=== PATIENT | female | born 1935 | race Caucasian/White ===

== ENCOUNTER 2018-03-16 12:07 | Emergency (ER) | END 2018-03-16 15:34 | disposition home or self-care (01) ==

== ENCOUNTER 2018-09-16 16:27 | Emergency (ER) | payer MEDICARE, BC ==
[~2018-09-16] VITALS: Ht 167.6 cm; Wt 105.0 kg
[~2018-09-16 16:27] MED LIST: ALBU18HF INHALATION; CLON-379 PO; DILT120C79 PO; ESCI20TA PO; FURO20TA3 PO; LORA0.5T PO; NAPR-688 PO; RANI150T35 PO; TRAZ150T65 PO
[2018-09-16 16:32] VITALS: Ht 167.6 cm; Wt 105.0 kg
[2018-09-16] MEDS ORDERED: ESCI20TA PO (17:51)
[2018-09-16] MEDS ORDERED: CLON-379 PO (17:52)
[2018-09-16] MEDS ORDERED: TOLT2TAB13 PO (17:53)
[2018-09-16] MEDS ORDERED: RANI150T5 PO (17:53)
[2018-09-16] MEDS ORDERED: MULT-902 PO (17:53)
[2018-09-16] MEDS ORDERED: GABA300C16 PO (17:55)
[2018-09-16] MEDS ORDERED: IBUP-1542 PO (17:55)
[2018-09-16] MEDS ORDERED: DICL100G37 TOP (17:55)
[2018-09-16] MEDS ORDERED: TRAZ150T65 PO (17:56)
[2018-09-16] MEDS ORDERED: PRED10TA PO (17:58)
[2018-09-16] MEDS ORDERED: DOXY100T20 PO (20:47)
--- NOTE | 2018-09-16 20:55 | ERD ---
ER Documentation Chief Complaint Chief Complaint Complains of lower left leg swelling x 1 week HPI 83-year-old female, who presents for evaluation of bilateral lower extremity swelling, with more redness to her left foot. She denies fever, she denies nausea vomiting, she has had no cough, chest pain, shortness of breath, no history of immobility. ROS All systems reviewed and are negative except as per history of present illness. Medications Home Meds Active Scripts Doxycycline Hyclate* (Doxycycline Hyclate*) 100 Mg Tablet.dr, 100 MG PO BID for 10 Days, TAB Prov:THOR JAMES MD 09/16/18 Reported Medications Prednisone* (Prednisone*) 10 Mg Tab, 15 MG PO DAILY, TAB 09/16/18 Trazodone Hcl* (Trazodone Hcl*) 150 Mg Tablet, 150 MG PO QHS, #30 TAB 09/16/18 Gabapentin* (Gabapentin*) 300 Mg Capsule, 300 MG PO TID, #90 CAP 09/16/18 Diclofenac Sodium* (Voltaren* Gel) 1% -100 Gm Gel, 4 GM TOP QID PRN for PAIN, #1 TUB 09/16/18 Ibuprofen* (Motrin*) 600 Mg Tab, 600 MG PO BID PRN for PAIN, TAB 09/16/18 Multivitamin/Iron/Folic Acid (Centrum Adults Tablet) 1 Each Tablet, 1 EACH PO DAILY, TAB 09/16/18 Tolterodine Tartrate* (Detrol*) 2 Mg Tablet, 2 MG PO BID, #60 TAB 09/16/18 Ranitidine Hcl* (Ranitidine Hcl*) 150 Mg Tablet, 150 MG PO HS, #30 TAB 09/16/18 Clonidine Hcl* (Clonidine Hcl*) 0.1 Mg Tab, 0.1 MG PO QHS PRN for ELEVATED BLOOD PRESSURE, TAB 09/16/18 Escitalopram Oxalate* (Lexapro*) 20 Mg Tablet, 20 MG PO DAILY, #30 TAB 09/16/18 Discontinued Reported Medications Diltiazem Hcl* (Diltiazem XT) 120 Mg Capsule.sa, 120 MG PO DAILY, #30 CAP 03/16/18 Lorazepam* (Lorazepam*) 0.5 Mg Tablet, 0.5 MG PO BID PRN for ANXIETY, TAB 03/16/18 Furosemide* (Furosemide*) 20 Mg Tablet, 20 MG PO DAILY, #60 TAB 08/16/16 Escitalopram Oxalate* (Lexapro*) 20 Mg Tablet, 20 MG PO DAILY, #30 TAB 08/16/16 Clonidine Hcl* (Clonidine Hcl*) 0.1 Mg Tab, 0.1 MG PO DAILY PRN for ELEVATED BLOOD PRESSURE, TAB 08/16/16 Trazodone Hcl* (Trazodone Hcl*) 150 Mg Tablet, 150 MG PO QHS, #30 TAB 08/16/16 Ranitidine Hcl* (Zantac*) 150 Mg Tablet, 150 MG PO BID, #60 TAB 08/16/16 Discontinued Scripts Naproxen* (Naproxen*) 500 Mg Tablet, 500 MG PO BID PRN for PAIN, #14 TAB Prov:NICOLE BARBER DO 08/16/16 Albuterol Sulfate* (Ventolin HFA*) 18 Gm Hfa.aer.ad, 2 PUFF INHALATION Q4H, #1 INHALER Prov:NICOLE BARBER DO 08/16/16 Allergies Allergies: Coded Allergies: rofecoxib (Unverified Allergy, Severe, RASH/SOB, 09/16/18) sertraline (Unverified Allergy, Severe, RASH/SOB, 09/16/18) theophylline (Verified Allergy, Severe, RASH/SOB, 09/16/18) Calcium Channel Blocking Agents-Dih (Verified Allergy, Unknown, 09/16/18) cefaclor (Verified Allergy, Unknown, 09/16/18) cephalexin (Verified Allergy, Unknown, 09/16/18) clarithromycin (Verified Allergy, Unknown, 09/16/18) diltiazem (Verified Allergy, Unknown, 09/16/18) lisinopril (Verified Allergy, Unknown, 09/16/18) triamcinolone (Verified Allergy, Unknown, 09/16/18) PATIENT HAS BEEN TAKING PREDNISONE AT HOME FOR WEEKS FOR TEMPORAL ARTERITIS PER DR ALEX'S ORDERS. PMhx/Soc History of Surgery: Yes (CHOLECYSTECTOMY, HYSTERECTOMY, HIP) Anesthesia Reaction: No Hx Neurological Disorder: No Hx Respiratory Disorders: Yes (ASTHMA ) Hx Cardiac Disorders: Yes (HTN) Hx Psychiatric Problems: Yes (DEPRESSION ) Hx Miscellaneous Medical Probl: Yes Hx Alcohol Use: No Hx Substance Use: No Hx Tobacco Use: No Smoking Status: Never smoker Physical Exam Vitals Vital Signs Date Temp Pulse Resp B/P (MAP) Pulse Ox O2 O2 Flow FiO2 Time Delivery Rate 09/16/18 98.5 79 22 145/90 95 Room Air 17:56 (108) 09/16/18 98.0 86 20 188/87 94 16:32 (120) Physical Exam Const: No acute distress Head: Atraumatic Eyes: Normal Conjunctiva ENT: Normal External Ears, Nose and Mouth. Neck: Full range of motion. No meningismus. Resp: Clear to auscultation bilaterally Cardio: Regular rate and rhythm, no murmurs Abd: Soft, non tender, non distended. Normal bowel sounds Skin: No petechiae or rashes Back: No midline or flank tenderness Ext: There is erythema over the dorsum of the left foot, into the calf, there is no induration, there is no crepitus, there is no fluctuance, there is bilateral 2+ pitting edema. Pulses are intact distally, sensation intact light touch Neur: Awake and alert Psych: Normal Mood and Affect Result Diagram: 09/16/18 1745 09/16/18 1745 Results 24 hrs Laboratory Tests Test 09/16/18 17:45 09/16/18 19:55 White Blood Count 10.9 10^3/ul Red Blood Count 4.42 10^6/ul Hemoglobin 12.7 g/dl Hematocrit 39.9 % Mean Corpuscular Volume 90.3 fl Mean Corpuscular Hemoglobin 28.7 pg Mean Corpuscular Hemoglobin Concent 31.8 g/dl Red Cell Distribution Width 15.6 % Platelet Count 283 10^3/UL Mean Platelet Volume 10.2 fl Immature Granulocytes % 1.400 % Neutrophils % 78.4 % Lymphocytes % 12.2 % Monocytes % 7.4 % Eosinophils % 0.1 % Basophils % 0.5 % Nucleated Red Blood Cells % 0.0 /100WBC Immature Granulocytes # 0.150 10^3/ul Neutrophils # 8.5 10^3/ul Lymphocytes # 1.3 10^3/ul Monocytes # 0.8 10^3/ul Eosinophils # 0.0 10^3/ul Basophils # 0.1 10^3/ul Nucleated Red Blood Cells # 0.0 10^3/ul Sodium Level 141 mmol/L Potassium Level 4.3 mmol/L Chloride Level 109 mmol/L Carbon Dioxide Level 26 mmol/L Anion Gap 6 Blood Urea Nitrogen 12 mg/dl Creatinine 0.70 mg/dl Est Glomerular Filtrat Rate mL/min mL/min Glucose Level 99 mg/dl Calcium Level 9.3 mg/dl Total Bilirubin 0.7 mg/dl Direct Bilirubin 0.00 mg/dl Indirect Bilirubin 0.7 mg/dl Aspartate Amino Transf (AST/SGOT) 30 IU/L Alanine Aminotransferase (ALT/SGPT) 27 IU/L Alkaline Phosphatase 89 IU/L Troponin I < 0.012 ng/ml B-Type Natriuretic Peptide 104 PG/ML Total Protein 7.2 g/dl Albumin 4.1 g/dl Globulin 3.10 g/dl Albumin/Globulin Ratio 1.32 Bedside Urine pH (LAB) 6.0 Bedside Urine Protein (LAB) Negative Bedside Urine Glucose (UA) Negative Bedside Urine Ketones (LAB) Negative Bedside Urine Blood Negative Bedside Urine Nitrite (LAB) Negative Bedside Urine Leukocyte Esterase (L Negative Procedures/MDM 83-year-old female presents for evaluation of bilateral lower extremity swelling. She has no cardiac symptoms, concerning for congestive heart failure, her lab workup was overall unremarkable, her ultrasound showed no evidence of DVT. As I cannot completely rule out cellulitis, I will start empirically on doxycycline. Patient was agreeable to this plan of care, at discharge she was in no acute distress. EKG: Rate/Rhythm: Normal Sinus Rhythm QRS, ST, T-waves: No changes consistent w/ acute ischemia Impression: No evidence of ischemia or arrhythmia Departure Diagnosis: Primary Impression: Cellulitis Site of cellulitis: unspecified site Qualified Codes: L03.90 - Cellulitis, unspecified Additional Impression: Swelling Condition: Stable Patient Instructions: Cellulitis Additional Instructions: Call your primary care doctor TOMORROW for an appointment during the next 2-3 days.See the doctor sooner or return here if your condition worsens before your appointment time. THOR JAMES MD Sep 16, 2018 20:55
[2018-09-16 21:15] VITALS: BP 158/100; PULSE 89; RESP 14
== END 2018-09-16 21:15 | disposition home or self-care (01) ==
LOC: E/R 16:27
DX: L03.116 Cellulitis of left lower limb (principal); J45.909 Unspecified asthma, uncomplicated; I10 Essential (primary) hypertension
CPT/HCPCS: 71045; 80053; 81003; 83880; 84484; 85025; 93971

== ENCOUNTER 2018-12-31 12:48 | Emergency (ER) | payer MEDICARE, BC ==
[~2018-12-31] VITALS: Ht 152.4 cm; Wt 63.6 kg
[~2018-12-31 12:48] MED LIST changes: -ALBU18HF INHALATION; +DICL100G37 TOP; -DILT120C79 PO; +DOXY100T20 PO; -FURO20TA3 PO; +GABA300C16 PO; +IBUP-1542 PO; -LORA0.5T PO; +MULT-902 PO; -NAPR-688 PO; +PRED10TA PO; -RANI150T35 PO; +RANI150T5 PO; +TOLT2TAB13 PO
--- NOTE | 2018-12-31 12:51 | ERD ---
ER Documentation Chief Complaint Chief Complaint ap HPI The patient is a 83-year-old female, presenting to the ER because of intermitt ent abdominal pain for 3 days, diarrhea today, denies nausea, vomiting, hematemesis/hematochezia, dysuria. She complains of left lower extremity redness for 1 week, has similar symptoms previously. Past medical history: Depression, asthma, bipolar, hard of hearing Past surgical history: Cholecystectomy, cholecystectomy ROS All systems reviewed and are negative except as per history of present illness. Medications Home Meds Active Scripts Clindamycin Hcl* (Clindamycin Hcl*) 300 Mg Capsule, 300 MG PO QID for 7 Days, CAP Prov:RD BERMAN MD 12/31/18 Reported Medications Fluocinonide* (Fluocinonide* Oint) 0.05%-60 Gm Oint..gm., 1 TOP DAILY APPLY TO AFFECTED AREA 12/31/18 Furosemide* (Lasix*) 20 Mg Tablet, 20 MG PO DAILY, TAB 12/31/18 Trazodone Hcl* (Desyrel*) 50 Mg Tab, 1 TAB ORAL QHS 12/31/18 Prednisone* (Prednisone*) 10 Mg Tab, 15 MG PO DAILY, TAB 09/16/18 Gabapentin* (Gabapentin*) 300 Mg Capsule, 300 MG PO TID, #90 CAP 09/16/18 Multivitamin/Iron/Folic Acid (Centrum Adults Tablet) 1 Each Tablet, 1 EACH PO DAILY, TAB 09/16/18 Clonidine Hcl* (Clonidine Hcl*) 0.1 Mg Tab, 0.1 MG PO QHS PRN for ELEVATED BLOOD PRESSURE, TAB 09/16/18 Discontinued Reported Medications Trazodone Hcl* (Trazodone Hcl*) 150 Mg Tablet, 150 MG PO QHS, #30 TAB 09/16/18 Diclofenac Sodium* (Voltaren* Gel) 1% -100 Gm Gel, 4 GM TOP QID PRN for PAIN, #1 TUB 09/16/18 Ibuprofen* (Motrin*) 600 Mg Tab, 600 MG PO BID PRN for PAIN, TAB 09/16/18 Tolterodine Tartrate* (Detrol*) 2 Mg Tablet, 2 MG PO BID, #60 TAB 09/16/18 Ranitidine Hcl* (Ranitidine Hcl*) 150 Mg Tablet, 150 MG PO HS, #30 TAB 09/16/18 Escitalopram Oxalate* (Lexapro*) 20 Mg Tablet, 20 MG PO DAILY, #30 TAB 09/16/18 Discontinued Scripts Doxycycline Hyclate* (Doxycycline Hyclate*) 100 Mg Tablet., 100 MG PO BID for 10 Days, TAB Prov:THOR JAMES MD 09/16/18 Allergies Allergies: Coded Allergies: rofecoxib (Unverified Allergy, Severe, RASH/SOB, 12/31/18) sertraline (Unverified Allergy, Severe, RASH/SOB, 12/31/18) theophylline (Verified Allergy, Severe, RASH/SOB, 12/31/18) Calcium Channel Blocking Agents-Dih (Verified Allergy, Unknown, 12/31/18) cefaclor (Verified Allergy, Unknown, 12/31/18) cephalexin (Verified Allergy, Unknown, 12/31/18) clarithromycin (Verified Allergy, Unknown, 09/16/18) diltiazem (Verified Allergy, Unknown, 09/16/18) lisinopril (Verified Allergy, Unknown, 09/16/18) triamcinolone (Verified Allergy, Unknown, 09/16/18) PATIENT HAS BEEN TAKING PREDNISONE AT HOME FOR WEEKS FOR TEMPORAL ARTERITIS PER DR ALEX'S ORDERS. PMhx/Soc History of Surgery: Yes (CHOLECYSTECTOMY, HYSTERECTOMY, HIP) Anesthesia Reaction: No Hx Neurological Disorder: No Hx Respiratory Disorders: Yes (ASTHMA ) Hx Cardiac Disorders: Yes (HTN) Hx Psychiatric Problems: Yes (DEPRESSION ) Hx Miscellaneous Medical Probl: Yes Hx Alcohol Use: No Hx Substance Use: No Hx Tobacco Use: No Physical Exam Vitals Vital Signs Date Temp Pulse Resp B/P (MAP) Pulse Ox O2 O2 Flow FiO2 Time Delivery Rate 12/31/18 98.6 100 16 115/74 100 Room Air 14:35 (88) 12/31/18 98.3 99 16 166/75 96 12:52 (105) Physical Exam Const: No acute distress. Head: Atraumatic. Eyes: Normal Conjunctiva. ENT: Normal External Ears, Nose and Mouth. Neck: Full range of motion. No meningismus. Resp: Clear to auscultation bilaterally. Cardio: Regular rate and rhythm. Abd: Soft, non distended, normal bowel sounds, mild/vague abdominal tenderness, no rigidity/rebound/CVA tenderness Skin: No petechiae or rashes. Back: No midline or flank tenderness. Ext: Bilateral leg with minimal calf discomfort, mild left leg erythema Neur: Awake and alert. No focal deficit Psych: Normal Mood and Affect. Result Diagram: 12/31/18 1305 12/31/18 1305 Results 24 hrs Laboratory Tests Test 12/31/18 13:05 12/31/18 14:22 White Blood Count 8.6 10^3/ul Red Blood Count 4.80 10^6/ul Hemoglobin 12.5 g/dl Hematocrit 40.5 % Mean Corpuscular Volume 84.4 fl Mean Corpuscular Hemoglobin 26.0 pg Mean Corpuscular Hemoglobin Concent 30.9 g/dl Red Cell Distribution Width 16.7 % Platelet Count 314 10^3/UL Mean Platelet Volume 11.0 fl Immature Granulocytes % 0.500 % Neutrophils % 55.6 % Lymphocytes % 28.8 % Monocytes % 10.6 % Eosinophils % 4.1 % Basophils % 0.4 % Nucleated Red Blood Cells % 0.0 /100WBC Immature Granulocytes # 0.040 10^3/ul Neutrophils # 4.8 10^3/ul Lymphocytes # 2.5 10^3/ul Monocytes # 0.9 10^3/ul Eosinophils # 0.4 10^3/ul Basophils # 0.0 10^3/ul Nucleated Red Blood Cells # 0.0 10^3/ul Sodium Level 141 mmol/L Potassium Level 3.7 mmol/L Chloride Level 109 mmol/L Carbon Dioxide Level 23 mmol/L Anion Gap 9 Blood Urea Nitrogen 8 mg/dl Creatinine 0.60 mg/dl Est Glomerular Filtrat Rate mL/min mL/min Glucose Level 99 mg/dl Calcium Level 9.9 mg/dl Total Bilirubin 1.1 mg/dl Direct Bilirubin 0.00 mg/dl Indirect Bilirubin 1.1 mg/dl Aspartate Amino Transf (AST/SGOT) 23 IU/L Alanine Aminotransferase (ALT/SGPT) 21 IU/L Alkaline Phosphatase 103 IU/L Total Protein 6.6 g/dl Albumin 3.6 g/dl Globulin 3.00 g/dl Albumin/Globulin Ratio 1.20 Lipase 54 U/L Bedside Urine pH (LAB) 6.0 Bedside Urine Protein (LAB) Negative Bedside Urine Glucose (UA) Negative Bedside Urine Ketones (LAB) Negative Bedside Urine Blood Negative Bedside Urine Nitrite (LAB) Negative Bedside Urine Leukocyte Esterase (L Negative Procedures/[facility] [id number] [address] [place] [address] Radiology Main Line: [phone] DIAGNOSTIC IMAGING REPORT Patient: MARIPOSA MATOS : 1935 Age: 83 Sex: F MR #: [id number] [facility] #: [id number] DOS: 12/31/18 1258 Ordering MD: RD BERMAN MD Location: E/R Room/Bed: PROCEDURE: CT ABDOMEN AND PELVIS WITHOUT CONTRAST. CLINICAL INDICATION: Right-side abdominal pain TECHNIQUE: CT scan of the abdomen and pelvis without contrast was performed on a multidetector high-resolution CT scanner. The patient was scanned without intravenous contrast. Coronal and sagittal reformatted images were obtained from the axial source images. Images were reviewed on a high-resolution PACS workstation. The total exam CTDI equals 23.2 mGy and the total exam DLP equals 1388 mGy-cm. One or more of the following dose reduction techniques were used: Automated exposure control. Adjustment of the mA and/or kV according to patient size. Use of iterative reconstruction technique. DICOM images are available COMPARISON: None FINDINGS: CT abdomen: The lung bases are clear. The heart size is within normal limits. There is no significant pericardial effusion. Hepatic morphology is within normal limits. Multiple cysts are scattered throughout the liver. The largest, measures up to 4.9 cm within the posterior right lobe liver. Status post cholecystectomy. No evidence of intrahepatic or extrahepatic biliary dilatation. The spleen and pancreas are within normal limits. Both adrenal glands are within normal limits. Both kidneys are in anatomic position. No gross renal/ureteric calculi. No evidence of obstructive uropathy. 1.5 cm right-sided renal cyst. The visualized GI tract demonstrate normal caliber loops of small and large bowel. No evidence of bowel obstruction. Small hiatal hernia. Stool filled loops of large bowel suggestive of constipation. Atherosclerotic calcification aorta is identified. No significant retroperitoneal lymphadenopathy. CT pelvis: Bladder is within limits. The uterus is not visualized. Rectosigmoid colon demonstrates stool and diverticulosis. No significant free fluid. No significant pelvic lymphadenopathy. The visualized osseous structures demonstrates degenerate changes of this spine and bilateral hips. Left hip intramedullary raymond and screws noted. IMPRESSION: 1. No gross renal/ureteric calculi. No evidence of obstructive uropathy. Bilateral renal cysts. 1.5 cm right-sided exophytic renal cyst. 2. Multiple hepatic cysts. Largest measures 4.9 cm within the posterior right lobe liver. 3. Status post cholecystectomy. 4. Atherosclerotic disease of the aorta. 5. No evidence of acute intra-abdominal/pelvic inflammatory process. No evidence of bowel obstruction. Stool filled loops of large bowel suggestive of constipation. The appendix is not clearly identified, however no inflammatory changes within right lower quadrant. 6. Status post hysterectomy. 7. No evidence of free fluid or free air. No gross focal fluid collections. RPTAT: AAPP Physician Ifrah Date Time Electronically viewed and signed by Physician Ifrah on 12/31/2018 13:45 JL/ CC: RD BERMAN MD [id number] [place] [address] Radiology Main Line: [phone] DIAGNOSTIC IMAGING REPORT Patient: MARIPOSA MATOS : 1935 Age: 83 Sex: F MR #: [id number] DOS: 12/31/18 1258 Ordering MD: RD BERMAN MD Location: E/R Room/Bed: PROCEDURE: US Lower extremity Venous. CLINICAL INDICATION: Bilateral lower extremity edema TECHNIQUE: Multiple sonographic images of the bilateral lower extremity deep venous system was obtained utilizing grayscale, color-flow, compressive sonography and doppler imaging with augmentation. The images were reviewed on a PACS workstation. COMPARISON: None. FINDINGS: There is normal compressibility and flow within the bilateral common femoral, femoral , posterior tibial and popliteal veins. RPTAT: AA IMPRESSION: No sonographic evidence for deep venous thrombosis. .Sky Manzanares MD, Date Time Electronically viewed and signed by .Sky Manzanares MD, on 12/31/2018 13 :59 .S/ CC: RD BERMAN MD [id number] MEDICAL MAKING DECISION: The patient is a 83-year-old female, presenting with acute abdominal pain of unclear etiology, acute left leg cellulitis, is stable for outpatient follow-up The differential diagnoses considered include but are not limited to cholelithiasis, cholecystitis, choledocholithiasis, cholangitis, pancreatitis, hepatitis, gastritis, peptic ulcer disease, gastric ulcer, appendicitis, cystitis, diverticulitis, partial small bowel obstruction, lymphedema, DVT. Departure Diagnosis: Primary Impression: Abdominal pain Additional Impression: Cellulitis Condition: Good Comments She was discharged with clindamycin I discussed the findings with the patient. I advised the patient to follow-up with the primary physician in about 2-3 days, sooner if needed and return if any concern. Disclaimer: Inadvertent spelling and grammatical errors are likely due to EHR/dictation software use and do not reflect on the overall quality of patient care. Also, please note that the electronic time recorded on this note does not necessarily reflect the actual time of the patient encounter. RD BERMAN MD Dec 31, 2018 12:51
[2018-12-31 12:52] VITALS: Ht 152.4 cm; Wt 63.6 kg
[2018-12-31] MEDS ORDERED: TRAZ-149 ORAL (14:27)
[2018-12-31] MEDS ORDERED: FURO-110 PO (14:32)
[2018-12-31] MEDS ORDERED: FLUO60OI TOP (14:32)
[2018-12-31] MEDS ORDERED: CLIN300C10 PO (14:34)
[2018-12-31 14:35] VITALS: BP 115/74; PULSE 100; RESP 16
== END 2018-12-31 14:49 | disposition home or self-care (01) ==
LOC: E/R 12:48
DX: L03.90 Cellulitis, unspecified (principal); I10 Essential (primary) hypertension; J45.909 Unspecified asthma, uncomplicated
CPT/HCPCS: 36415; 74176; 80053; 81003; 83690; 85025; 93970

== ENCOUNTER 2019-01-08 09:23 | Emergency (ER) | payer MEDICARE, BC ==
[~2019-01-08] VITALS: Ht 152.4 cm; Wt 95.5 kg
[~2019-01-08 09:23] MED LIST changes: +CLIN300C10 PO; -DICL100G37 TOP; -DOXY100T20 PO; -ESCI20TA PO; +FLUO60OI TOP; +FURO-110 PO; -IBUP-1542 PO; -RANI150T5 PO; -TOLT2TAB13 PO; +TRAZ-149 ORAL; -TRAZ150T65 PO
[2019-01-08 09:34] VITALS: Ht 152.4 cm; Wt 95.5 kg
--- NOTE | 2019-01-08 09:35 | ERD ---
ER Documentation Chief Complaint Chief Complaint HPI This is an 83-year-old woman with history of psychiatric illness and mild sara ia complaining of right upper abdominal pain. States the pain is been constant daily for 1 week, although it seems she has had the symptoms in the past and was here last week for similar symptomatology. Work-up a week ago was unremarkable. She denies blood per rectum or melena, no weight loss, no fevers or chills, no chest pain or shortness of breath. ROS All systems reviewed and are negative except as per history of present illness. Medications Home Meds Reported Medications Fluocinonide* (Fluocinonide* Oint) 0.05%-60 Gm Oint..gm., 1 TOP DAILY APPLY TO AFFECTED AREA 12/31/18 Furosemide* (Lasix*) 20 Mg Tablet, 20 MG PO DAILY, TAB 12/31/18 Trazodone Hcl* (Desyrel*) 50 Mg Tab, 1 TAB ORAL QHS 12/31/18 Gabapentin* (Gabapentin*) 300 Mg Capsule, 300 MG PO TID, #90 CAP 09/16/18 Multivitamin/Iron/Folic Acid (Centrum Adults Tablet) 1 Each Tablet, 1 EACH PO DAILY, TAB 09/16/18 Clonidine Hcl* (Clonidine Hcl*) 0.1 Mg Tab, 0.1 MG PO QHS PRN for ELEVATED BLOOD PRESSURE, TAB 09/16/18 Discontinued Reported Medications Prednisone* (Prednisone*) 10 Mg Tab, 15 MG PO DAILY, TAB 09/16/18 Discontinued Scripts Clindamycin Hcl* (Clindamycin Hcl*) 300 Mg Capsule, 300 MG PO QID for 7 Days, CAP Prov:RD BERMAN MD 12/31/18 Allergies Allergies: Coded Allergies: rofecoxib (Unverified Allergy, Severe, RASH/SOB, 01/08/19) sertraline (Unverified Allergy, Severe, RASH/SOB, 01/08/19) theophylline (Verified Allergy, Severe, RASH/SOB, 01/08/19) Calcium Channel Blocking Agents-Dih (Verified Allergy, Unknown, 01/08/19) cefaclor (Verified Allergy, Unknown, 01/08/19) cephalexin (Verified Allergy, Unknown, 01/08/19) clarithromycin (Verified Allergy, Unknown, 01/08/19) diltiazem (Verified Allergy, Unknown, 01/08/19) lisinopril (Verified Allergy, Unknown, 01/08/19) triamcinolone (Verified Allergy, Unknown, 01/08/19) PATIENT HAS BEEN TAKING PREDNISONE AT HOME FOR WEEKS FOR TEMPORAL ARTERITIS PER DR ALEX'S ORDERS. PMhx/Soc Chronic pain syndrome, opioid dependence, spastic bowel syndrome, osteoarthritis, hypertension, renal and adrenal cysts, depression, asthma, bipolar, hearing impaired, history of cholecystectomy History of Surgery: Yes (CHOLECYSTECTOMY, HYSTERECTOMY, HIP) Anesthesia Reaction: No Hx Neurological Disorder: No Hx Respiratory Disorders: Yes (ASTHMA ) Hx Cardiac Disorders: Yes (HTN) Hx Psychiatric Problems: Yes (DEPRESSION ) Hx Miscellaneous Medical Probl: Yes Hx Alcohol Use: No Hx Substance Use: No Hx Tobacco Use: No Physical Exam Vitals Vital Signs Date Temp Pulse Resp B/P (MAP) Pulse Ox O2 O2 Flow FiO2 Time Delivery Rate 01/08/19 72 18 118/68 97 Room Air 11:22 (85) 01/08/19 98.2 94 18 128/72 97 09:34 (90) Physical Exam Const: No acute distress, afebrile Resp: Clear to auscultation bilaterally Cardio: Regular rate and rhythm, no murmurs Abd: Soft, abdomen, no masses palpated, no tenderness, no rigidity or rebound Skin: No petechiae or rashes. Mild erythema of the bilateral lower extremities consistent with stasis dermatitis, no induration, no lacerations Back: No midline or flank tenderness Ext: No cyanosis, 1+ pitting edema in the lower extremities bilaterally Neur: Awake and alert x2, no focal deficits or facial asymmetry, gait normal, able to answer all questions and follow all commands Psych: Normal Mood and Affect Result Diagram: 01/08/19 1012 01/08/19 1012 Results 24 hrs Laboratory Tests Test 01/08/19 09:58 01/08/19 10:12 Urine Color YELLOW Urine Clarity SLIGHTLY CLOUDY Urine pH 5.0 Urine Specific [place] 1.023 Urine Ketones NEGATIVE mg/dL Urine Nitrite NEGATIVE mg/dL Urine Bilirubin NEGATIVE mg/dL Urine Urobilinogen NEGATIVE mg/dL Urine Leukocyte Esterase NEGATIVE [place]/ul Urine Microscopic RBC 0 /HPF Urine Microscopic WBC 1 /HPF Urine Squamous Epithelial Cells FEW /HPF Urine Bacteria FEW /HPF Urine Mucus FEW /HPF Urine Hemoglobin NEGATIVE mg/dL Urine Glucose NEGATIVE mg/dL Urine Total Protein NEGATIVE mg/dl White Blood Count 9.2 10^3/ul Red Blood Count 4.86 10^6/ul Hemoglobin 12.7 g/dl Hematocrit 40.5 % Mean Corpuscular Volume 83.3 fl Mean Corpuscular Hemoglobin 26.1 pg Mean Corpuscular Hemoglobin Concent 31.4 g/dl Red Cell Distribution Width 17.3 % Platelet Count 334 10^3/UL Mean Platelet Volume 11.3 fl Immature Granulocytes % 0.400 % Neutrophils % 61.9 % Lymphocytes % 22.6 % Monocytes % 11.5 % Eosinophils % 3.1 % Basophils % 0.5 % Nucleated Red Blood Cells % 0.0 /100WBC Immature Granulocytes # 0.040 10^3/ul Neutrophils # 5.7 10^3/ul Lymphocytes # 2.1 10^3/ul Monocytes # 1.1 10^3/ul Eosinophils # 0.3 10^3/ul Basophils # 0.1 10^3/ul Nucleated Red Blood Cells # 0.0 10^3/ul Sodium Level 142 mmol/L Potassium Level 3.9 mmol/L Chloride Level 107 mmol/L Carbon Dioxide Level 25 mmol/L Anion Gap 10 Blood Urea Nitrogen 8 mg/dl Creatinine 0.65 mg/dl Est Glomerular Filtrat Rate mL/min mL/min Glucose Level 111 mg/dl Calcium Level 9.6 mg/dl Total Bilirubin 1.1 mg/dl Direct Bilirubin 0.00 mg/dl Indirect Bilirubin 1.1 mg/dl Aspartate Amino Transf (AST/SGOT) 23 IU/L Alanine Aminotransferase (ALT/SGPT) 15 IU/L Alkaline Phosphatase 107 IU/L Total Protein 6.6 g/dl Albumin 3.8 g/dl Globulin 2.80 g/dl Albumin/Globulin Ratio 1.35 Lipase 59 U/L Current Medications Medications Dose Sig/Oscar Start Time Status Last (Trade) Ordered Route PRN Stop Time Admin Dose Reason Admin Sodium 500 ml @ Q1H STAT 01/08/19 DC Chloride 500 mls/hr IV 10:02 01/08/19 11:01 Oxycodone/ 1 tab ONCE ONCE 01/08/19 DC 01/08/19 Acetaminophen PO 10:30 10:19 (Percocet 01/08/19 10:31 (5/ 325)) Procedures/MDM IV line was established patient was placed on senior accounting specialist rhythm strip revealed a sinus rhythm at about 80 bpm with upright P and T waves. Patient was afebrile CT scan of the abdomen and pelvis performed about a week ago revealed I MPRESSION: 1. No gross renal/ureteric calculi. No evidence of obstructive uropathy. Bilateral renal cysts. 1.5 cm right-sided exophytic renal cyst. 2. Multiple hepatic cysts. Largest measures 4.9 cm within the posterior right lobe liver. 3. Status post cholecystectomy. 4. Atherosclerotic disease of the aorta. 5. No evidence of acute intra-abdominal/pelvic inflammatory process. No evidence of bowel obstruction. Stool filled loops of large bowel suggestive of constipation. The appendix is not clearly identified, however no inflammatory changes within right lower quadrant. 6. Status post hysterectomy. 7. No evidence of free fluid or free air. No gross focal fluid collections. CBC and electrolytes were normal, liver function tests were normal, urinalysis was negative for infection. I administered 500 cc normal saline IV and Percocet 1 tablet p.o. I spoke to her primary care physician regarding her presentation, symptomatology, recent work-up and recommended outpatient management. He knows her well and agreed to follow-up with her in his office in the next week to 2 we eks. We agreed on outpatient management for Ms. Steiner, and she was provided these instructions both verbally and in written form. Differential diagnoses considered, included but not limited to acute coronary syndrome, pulmonary embolism, aortic dissection, abdominal aortic aneurysm, sepsis, stroke, meningitis, encephalitis, pneumonia, appendicitis, cholecystitis, bowel obstruction, pyelonephritis, nephrolithiasis, cystitis, as well as metabolic, hematologic, and electrolyte abnormalities. As well as abscess, cellulitis, fractures, and dislocations. Patient feels much better at this time, and vital signs are normal, symptoms have improved. I did give strict instructions to return to the ED if symptoms continue or worsen, patient will otherwise follow-up with primary care physician. Patient understood instructions and agreed to plan. Disclaimer: Inadvertent spelling and grammatical errors are likely due to EHR/dictation software use and do not reflect on the overall quality of patient care. Also, please note that the electronic time recorded on this note does not necessarily reflect the actual time of the patient encounter. Departure Diagnosis: Primary Impression: Abdominal pain Abdominal location: right upper quadrant Qualified Codes: R10.11 - Right upper quadrant pain Additional Impressions: Stasis dermatitis Laterality: bilateral Qualified Codes: I87.2 - Venous insufficiency (chronic) (peripheral) Dementia Dementia type: unspecified type Dementia behavioral disturbance: without behavioral disturbance Qualified Codes: F03.90 - Unspecified dementia without behavioral disturbance Chronic pain syndrome Condition: THOR Meade MD Jan 08, 2019 09:35
[2019-01-08] MEDS ORDERED: SOD CHLORIDE 0.9% 500 ML IV STA (10:02)
[2019-01-08] MEDS ORDERED: OXYCODONE/ACETAMINOPHEN (5/325) TAB PO ONE (10:30)
[2019-01-08 11:22] VITALS: BP 118/68; PULSE 72; RESP 18
== END 2019-01-08 11:22 | disposition home or self-care (01) ==
LOC: E/R 09:23
DX: R10.11 Right upper quadrant pain (principal); J45.909 Unspecified asthma, uncomplicated; I10 Essential (primary) hypertension; I87.2 Venous insufficiency (chronic) (peripheral); F03.90 Unspecified dementia, unspecified severity, without behavioral disturbance, psychotic disturbance, mood disturbance, and anxiety; G89.4 Chronic pain syndrome
CPT/HCPCS: 36415; 80053; 81001; 83690; 85025; 99283; J7040; 81003